=== PATIENT | female | born 1935 | race Caucasian/White ===

== ENCOUNTER 2018-11-20 13:23 | Emergency (ER) | payer SELFPAY ==
[2018-11-20 13:50] VITALS: BP 127/97; PULSE 84; TEMP 97.8; BMI 25.6
--- NOTE | 2018-11-20 14:12 | PDOC ---
Attending Attestation - HPI HPI: Unable to obtain HPI and examine patient as she wants to leave AMA. 11/20/18 14:58 - Medical Decision Making Documentation prepared by DYLON Mays, acting as medical charge entry specialist for Jeanna Davidson MD/DO. 11/20/18 14:58 <Veronika Guadalupe - Last Filed: 11/20/18 14:58> - Resident Resident Name: Jessica Corbin - ED Attending Attestation I have performed the following: I have examined & evaluated the patient, The case was reviewed & discussed with the resident, I agree w/resident's findings & plan, Exceptions are as noted - HPI HPI: - Physicial Exam PE: 11/20/18 14:11 Unable to examine this patient - Medical Decision Making 11/20/18 14:11 Pt unwilling to stay in the hospital for labs, ekg, further evaluation Pt understands the risks of leaving AMA Note: The patient insists on leaving the emergency dept and is signing out against medical advice. The patient understands the risks and complications that may result from the refusal of medical care and admission which includes and permanent disability. The patient has the mental capacity of understanding the risks of refusing care and is capable of making an informed decision. The patient was instructed to return to the emergency department should she change her mind regarding medical care or should her condition worsen. The patient signed the Against Medical Advice form. <Jeanna Davidson - Last Filed: 11/22/18 10:18>
== END 2018-11-20 14:20 | disposition left against medical advice (07) ==
LOC: JER 13:23
DX: R42 Dizziness and giddiness (principal); M54.2 Cervicalgia
CPT/HCPCS: 99281-25

== ENCOUNTER 2020-10-04 16:59 | Inpatient (IN) | payer OTHER ==
[2020-10-04 19:23] LABS: BASO % 0.2 % (0-2.0); EOS % 0.5 % (0-4.5); HEMATOCRIT 39.2 % (32.4-45.2); HEMOGLOBIN 13.6 GM/dL (10.7-15.3); LYMPH % 10.6 % (8-40); MCH 32.7 pg (25.7-33.7); MCHC 34.7 g/dl (32.0-36.0); MEAN CELL VOLUME 94.3 fl (80-96); MEAN PLT VOLUME 6.8 fl (7.5-11.1); MONO % 12.9 % (3.8-10.2); NEUT % 75.8 % (42.8-82.8); PLATELET COUNT 262 K/MM3 (134-434); RBC 4.16 M/mm3 (3.60-5.2); RDW 12.7 % (11.6-15.6); WHITE BLOOD COUNT 6.6 K/mm3 (4.0-10.0)
[2020-10-04 19:38] LABS: CHLORIDE 99 mmol/L (98-107); SODIUM 135 mmol/L (136-145)
[2020-10-04 19:41] LABS: ALBUMIN 3.2 g/dl (3.4-5.0); ANION GAP 6 MMOL/L (8-16); BLOOD UREA NITROGEN 15.4 mg/dL (7-18); CO2 31 mmol/L (21-32); GLUCOSE,RANDOM 104 mg/dL (74-106)
[2020-10-04 19:44] LABS: CREATININE 0.8 mg/dL (0.55-1.3); SGOT/AST 34 U/L (15-37); SGPT/ALT 51 U/L (13-61)
[2020-10-04 19:46] LABS: BILIRUBIN,TOTAL 1.2 mg/dL (0.2-1); TOT PROT 7.2 g/dl (6.4-8.2)
[2020-10-04 19:47] LABS: ALK PHOS 58 U/L (45-117)
[2020-10-04 20:40] LABS: LDH 287 U/L (84-246)
[2020-10-04 20:40] LABS: INR 1.07 (0.83-1.09); PROTHROMBIN TIME (PATIENT) 13.1 SEC (9.7-13.0)
[2020-10-04 20:43] LABS: ACTIVATED PTT 30.4 SECONDS (25.2-36.5)
[2020-10-04] MEDS ORDERED: AZITHROMYCIN IVPB 500 MG/250 ML BAG IVPB ONE (23:12)
[2020-10-04] MEDS ORDERED: DEXAMETHASONE SOD PHOSPHATE 10 MG/1 ML VIAL IVPUSH SCH (23:30)
[2020-10-04] MEDS ORDERED: DEXAMETHASONE SOD PHOSPHATE 4 MG/1 ML VIAL ONE (23:33)
[2020-10-04] MEDS ORDERED: CEFTRIAXONE 1 GM/50 ML BAG ONE (23:34)
[2020-10-05] MEDS: CEFTRIAXONE 1 GM in DEXTROSE 5%-WATER - 50 ML IVPB SCH ×2 (00:43→09:32)
[2020-10-05] MEDS ORDERED: AZITHROMYCIN IVPB 500 MG/250 ML BAG IVPB ONE (02:34)
[2020-10-05 04:55] LABS: EPI CELLS 18 /uL (0-25.1); HYALINE CASTS 0 /uL (0-3.1); URINE APPEARANCE CLEAR; URINE BILIRUBIN NEGATIVE (NEGATIVE); URINE COLOR YELLOW; URINE GLUCOSE (UA) NEGATIVE (NEGATIVE); URINE KETONE NEGATIVE (NEGATIVE); URINE LEUK ESTERASE TRACE (NEGATIVE); URINE NITRITE POSITIVE (NEGATIVE); URINE PROTEIN NEGATIVE (NEGATIVE); URINE RBC 4 /uL (0-23.9); URINE WBC 27 /uL (0-25.8)
[2020-10-05 05:03] LABS: URINE BACTERIA 463 /uL (0-1359)
[2020-10-05 06:24] LABS: BASO % 0.1 % (0-2.0); EOS % 0.1 % (0-4.5); HEMATOCRIT 37.5 % (32.4-45.2); HEMOGLOBIN 12.7 GM/dL (10.7-15.3); LYMPH % 6.7 % (8-40); MCH 32.2 pg (25.7-33.7); MCHC 33.9 g/dl (32.0-36.0); MEAN PLT VOLUME 6.9 fl (7.5-11.1); NEUT % 88.1 % (42.8-82.8); PLATELET COUNT 255 K/MM3 (134-434); RBC 3.95 M/mm3 (3.60-5.2); RDW 12.5 % (11.6-15.6); WHITE BLOOD COUNT 4.4 K/mm3 (4.0-10.0)
[2020-10-05 06:47] LABS: POTASSIUM 4.3 mmol/L (3.5-5.1)
[2020-10-05 06:49] LABS: ALBUMIN 2.8 g/dl (3.4-5.0); BLOOD UREA NITROGEN 12.4 mg/dL (7-18); CALCIUM 8.5 mg/dL (8.5-10.1)
[2020-10-05 06:53] LABS: CREATININE 0.8 mg/dL (0.55-1.3)
[2020-10-05 06:54] LABS: BILIRUBIN,TOTAL 0.6 mg/dL (0.2-1); TOT PROT 6.8 g/dl (6.4-8.2)
[2020-10-05] MEDS ORDERED: DONEPEZIL HCL 5 MG TABLET (FP) ONE (09:22)
[2020-10-05] MEDS ORDERED: APIXABAN 2.5 MG TABLET ONE (09:22)
[2020-10-05] MEDS ORDERED: CEFTRIAXONE 1 GM/50 ML BAG ONE (09:22)
[2020-10-05] MEDS: APIXABAN 2.5 MG TABLET PO SCH ×2 (09:32→22:15)
[2020-10-05] MEDS: PANTOPRAZOLE SODIUM 40 MG VIAL IVPUSH SCH (09:32)
[2020-10-05] MEDS: DONEPEZIL HCL 5 MG TABLET (FP) PO SCH (09:32)
[2020-10-05] MEDS: DEXAMETHASONE SOD PHOSPHATE 4 MG/1 ML VIAL IVPUSH SCH (13:55)
[2020-10-05] MEDS ORDERED: REMDESIVIR 200 MG in SODIUM CHLORIDE 210 ML IVPB ONE (14:00)
[2020-10-06 08:29] LABS: BASO % 0.2 % (0-2.0); HEMATOCRIT 35.7 % (32.4-45.2); LYMPH % 6.2 % (8-40); MCH 31.5 pg (25.7-33.7); MCHC 33.6 g/dl (32.0-36.0); MEAN CELL VOLUME 93.8 fl (80-96); MEAN PLT VOLUME 6.9 fl (7.5-11.1); MONO % 11.1 % (3.8-10.2); NEUT % 82.5 % (42.8-82.8); PLATELET COUNT 298 K/MM3 (134-434); RBC 3.81 M/mm3 (3.60-5.2); RDW 12.4 % (11.6-15.6); WHITE BLOOD COUNT 6.3 K/mm3 (4.0-10.0)
[2020-10-06 08:41] LABS: POTASSIUM 4.5 mmol/L (3.5-5.1)
[2020-10-06 08:44] LABS: CALCIUM 8.8 mg/dL (8.5-10.1)
[2020-10-06] MEDS ORDERED: cefTRIAXone SODIUM 1 GM VIAL ONE ×2 (08:44→10:20)
[2020-10-06] MEDS ORDERED: DEXTROSE 5%-WATER - 50 ML IVPB ONE ×2 (08:44→10:21)
[2020-10-06 08:46] LABS: BLOOD UREA NITROGEN 16.6 mg/dL (7-18)
[2020-10-06 08:48] LABS: CREATININE 0.7 mg/dL (0.55-1.3)
[2020-10-06] MEDS: PANTOPRAZOLE SODIUM 40 MG VIAL IVPUSH SCH (10:01)
[2020-10-06] MEDS: DEXAMETHASONE SOD PHOSPHATE 4 MG/1 ML VIAL IVPUSH SCH (10:09)
[2020-10-06] MEDS: DONEPEZIL HCL 5 MG TABLET (FP) PO SCH (10:24)
[2020-10-06] MEDS: CEFTRIAXONE 1 GM in DEXTROSE 5%-WATER - 50 ML IVPB SCH (10:24)
[2020-10-06] MEDS: APIXABAN 2.5 MG TABLET PO SCH ×2 (10:24→21:29)
[2020-10-06] MEDS: REMDESIVIR 100 MG in SODIUM CHLORIDE 230 ML IVPB SCH (14:49)
[2020-10-07 07:52] LABS: POTASSIUM 4.4 mmol/L (3.5-5.1)
[2020-10-07 07:58] LABS: CALCIUM 8.7 mg/dL (8.5-10.1)
[2020-10-07 07:59] LABS: ALBUMIN 2.8 g/dl (3.4-5.0); BASO % 0.1 % (0-2.0); BLOOD UREA NITROGEN 17.9 mg/dL (7-18); HEMATOCRIT 37.3 % (32.4-45.2); HEMOGLOBIN 12.7 GM/dL (10.7-15.3); LYMPH % 7.8 % (8-40); MCH 32.3 pg (25.7-33.7); MCHC 34.1 g/dl (32.0-36.0); MEAN CELL VOLUME 94.7 fl (80-96); MEAN PLT VOLUME 7.1 fl (7.5-11.1); NEUT % 82.1 % (42.8-82.8); PLATELET COUNT 308 K/MM3 (134-434); RBC 3.94 M/mm3 (3.60-5.2); RDW 12.9 % (11.6-15.6); WHITE BLOOD COUNT 7.1 K/mm3 (4.0-10.0)
[2020-10-07 08:00] LABS: CREATININE 0.7 mg/dL (0.55-1.3)
[2020-10-07 08:02] LABS: BILIRUBIN,TOTAL 0.4 mg/dL (0.2-1); TOT PROT 6.3 g/dl (6.4-8.2)
[2020-10-07] MEDS ORDERED: cefTRIAXone SODIUM 1 GM VIAL ONE (09:40)
[2020-10-07] MEDS ORDERED: DEXTROSE 5%-WATER - 50 ML IVPB ONE (09:40)
[2020-10-07] MEDS: CEFTRIAXONE 1 GM in DEXTROSE 5%-WATER - 50 ML IVPB SCH (09:43)
[2020-10-07] MEDS: PANTOPRAZOLE SODIUM 40 MG VIAL IVPUSH SCH (09:43)
[2020-10-07] MEDS: DONEPEZIL HCL 5 MG TABLET (FP) PO SCH (09:44)
[2020-10-07] MEDS: DEXAMETHASONE SOD PHOSPHATE 4 MG/1 ML VIAL IVPUSH SCH (09:44)
[2020-10-07] MEDS: APIXABAN 2.5 MG TABLET PO SCH ×2 (09:44→21:05)
[2020-10-07] MEDS: REMDESIVIR 100 MG in SODIUM CHLORIDE 230 ML IVPB SCH (15:01)
[2020-10-07] MEDS ORDERED: PT OWN MED DRAWER 7, Y5N ONE (17:06)
[2020-10-08 08:09] LABS: EOS % 0.1 % (0-4.5); HEMATOCRIT 37.7 % (32.4-45.2); HEMOGLOBIN 12.8 GM/dL (10.7-15.3); LYMPH % 14.1 % (8-40); MCH 32.2 pg (25.7-33.7); MCHC 33.9 g/dl (32.0-36.0); MONO % 15.3 % (3.8-10.2); NEUT % 70.5 % (42.8-82.8); PLATELET COUNT 310 K/MM3 (134-434); RBC 3.97 M/mm3 (3.60-5.2); RDW 12.9 % (11.6-15.6); WHITE BLOOD COUNT 5.1 K/mm3 (4.0-10.0)
[2020-10-08] MEDS ORDERED: cefTRIAXone SODIUM 1 GM VIAL ONE (09:03)
[2020-10-08] MEDS ORDERED: DEXTROSE 5%-WATER - 50 ML IVPB ONE (09:04)
[2020-10-08] MEDS: CEFTRIAXONE 1 GM in DEXTROSE 5%-WATER - 50 ML IVPB SCH (09:08)
[2020-10-08] MEDS: DEXAMETHASONE SOD PHOSPHATE 4 MG/1 ML VIAL IVPUSH SCH (09:08)
[2020-10-08] MEDS: DONEPEZIL HCL 5 MG TABLET (FP) PO SCH (09:09)
[2020-10-08] MEDS: PANTOPRAZOLE SODIUM 40 MG VIAL IVPUSH SCH (09:09)
[2020-10-08] MEDS: APIXABAN 2.5 MG TABLET PO SCH ×2 (09:09→21:04)
[2020-10-08 09:26] LABS: POTASSIUM 4.4 mmol/L (3.5-5.1)
[2020-10-08 09:34] LABS: CALCIUM 8.4 mg/dL (8.5-10.1)
[2020-10-08 09:35] LABS: BLOOD UREA NITROGEN 17.8 mg/dL (7-18)
[2020-10-08 09:39] LABS: CREATININE 0.6 mg/dL (0.55-1.3)
[2020-10-08] MEDS: REMDESIVIR 100 MG in SODIUM CHLORIDE 230 ML IVPB SCH (14:29)
[2020-10-09] MEDS ORDERED: cefTRIAXone SODIUM 1 GM VIAL ONE (09:27)
[2020-10-09] MEDS ORDERED: DEXTROSE 5%-WATER - 50 ML IVPB ONE (09:27)
[2020-10-09] MEDS: CEFTRIAXONE 1 GM in DEXTROSE 5%-WATER - 50 ML IVPB SCH (09:55)
[2020-10-09] MEDS: DONEPEZIL HCL 5 MG TABLET (FP) PO SCH (09:56)
[2020-10-09] MEDS: APIXABAN 2.5 MG TABLET PO SCH ×2 (09:56→21:17)
[2020-10-09] MEDS: PANTOPRAZOLE SODIUM 40 MG VIAL IVPUSH SCH (09:56)
[2020-10-09] MEDS: DEXAMETHASONE SOD PHOSPHATE 4 MG/1 ML VIAL IVPUSH SCH (09:56)
[2020-10-09] MEDS: REMDESIVIR 100 MG in SODIUM CHLORIDE 230 ML IVPB SCH (14:15)
[2020-10-10 08:57] LABS: BASO % 0.1 % (0-2.0); EOS % 0.1 % (0-4.5); HEMATOCRIT 42.6 % (32.4-45.2); HEMOGLOBIN 14.4 GM/dL (10.7-15.3); LYMPH % 15.1 % (8-40); MCHC 33.8 g/dl (32.0-36.0); MEAN CELL VOLUME 94.7 fl (80-96); MEAN PLT VOLUME 6.9 fl (7.5-11.1); MONO % 11.3 % (3.8-10.2); NEUT % 73.4 % (42.8-82.8); PLATELET COUNT 354 K/MM3 (134-434); WHITE BLOOD COUNT 6.7 K/mm3 (4.0-10.0)
[2020-10-10] MEDS ORDERED: cefTRIAXone SODIUM 1 GM VIAL ONE (09:15)
[2020-10-10] MEDS ORDERED: DEXTROSE 5%-WATER - 50 ML IVPB ONE (09:16)
[2020-10-10 09:31] LABS: POTASSIUM 4.3 mmol/L (3.5-5.1)
[2020-10-10 09:32] LABS: BLOOD UREA NITROGEN 22.8 mg/dL (7-18); CALCIUM 8.9 mg/dL (8.5-10.1)
[2020-10-10 09:36] LABS: CREATININE 0.8 mg/dL (0.55-1.3)
[2020-10-10] MEDS: DONEPEZIL HCL 5 MG TABLET (FP) PO SCH (09:45)
[2020-10-10] MEDS: DEXAMETHASONE SOD PHOSPHATE 4 MG/1 ML VIAL IVPUSH SCH (09:45)
[2020-10-10] MEDS: APIXABAN 2.5 MG TABLET PO SCH ×2 (09:47→21:41)
[2020-10-10] MEDS: PANTOPRAZOLE SODIUM 40 MG VIAL IVPUSH SCH (09:48)
[2020-10-10] MEDS: CEFTRIAXONE 1 GM in DEXTROSE 5%-WATER - 50 ML IVPB SCH (09:49)
[2020-10-11] MEDS ORDERED: DEXTROSE 5%-WATER - 50 ML IVPB ONE (09:13)
[2020-10-11] MEDS ORDERED: cefTRIAXone SODIUM 1 GM VIAL ONE (09:13)
[2020-10-11] MEDS: DONEPEZIL HCL 5 MG TABLET (FP) PO SCH (09:43)
[2020-10-11] MEDS: APIXABAN 2.5 MG TABLET PO SCH ×2 (09:43→21:56)
[2020-10-11] MEDS: DEXAMETHASONE SOD PHOSPHATE 4 MG/1 ML VIAL IVPUSH SCH (09:44)
[2020-10-11] MEDS: CEFTRIAXONE 1 GM in DEXTROSE 5%-WATER - 50 ML IVPB SCH (09:44)
[2020-10-11] MEDS: PANTOPRAZOLE SODIUM 40 MG VIAL IVPUSH SCH (09:44)
[2020-10-11 18:19] VITALS: BMI 26.3
[2020-10-12] MEDS: DONEPEZIL HCL 5 MG TABLET (FP) PO SCH (10:03)
[2020-10-12] MEDS: APIXABAN 2.5 MG TABLET PO SCH (10:03)
[2020-10-12] MEDS: DEXAMETHASONE SOD PHOSPHATE 4 MG/1 ML VIAL IVPUSH SCH (10:03)
[2020-10-12] MEDS: PANTOPRAZOLE SODIUM 40 MG VIAL IVPUSH SCH (10:03)
[2020-10-12 10:25] VITALS: PULSE 89
[2020-10-12 13:21] VITALS: BP 93/53; TEMP 98.9
== END 2020-10-12 13:13 | disposition home or self-care (01) | DRG 177 ==
LOC: JER 16:59 → JERBED 21:11 → J5S 10-05 12:01
PROVIDERS: ADMIT Family Medicine; ATTEND Family Medicine
PROC: 8E0ZXY6 Isolation (ICD-10-PCS; 2020-10-04)
PROC: XW033E5 Introduction of Remdesivir Anti-infective into Peripheral Vein, Percutaneous Approach, New Technology Group 5 (ICD-10-PCS; principal; 2020-10-06)
PROC: XW13325 Transfusion of Convalescent Plasma (Nonautologous) into Peripheral Vein, Percutaneous Approach, New Technology Group 5 (ICD-10-PCS; 2020-10-06)
DX: U07.1 COVID-19 (principal); J12.89 Other viral pneumonia; N39.0 Urinary tract infection, site not specified; G30.9 Alzheimer's disease, unspecified; F02.80 Dementia in other diseases classified elsewhere, unspecified severity, without behavioral disturbance, psychotic disturbance, mood disturbance, and anxiety; E66.9 Obesity, unspecified; Z68.25 Body mass index [BMI] 25.0-25.9, adult; R09.02 Hypoxemia
CPT/HCPCS: 36415; 36430; 71045-TC-FY; 71250-TC; 71275-TC; 80048; 80053; 81003; 82550; 82728; 83036; 83615; 83880; 84484; 85025; 85379; 85610; 85730; 86140; 86850; 86900; 86901; 87086; 93005; 93010; 94761; 99285-25; C9803; J1100; P9017; Q9967; U0003

== ENCOUNTER 2022-11-30 13:40 | Observation (INO) | payer OTHER ==
[2022-11-30 14:00] VITALS: BMI 27.1
[2022-11-30 15:32] LABS: BASO % 0.3 % (0-2.0); EOS % 0.3 % (0-4.5); HEMATOCRIT 43.3 % (32.4-45.2); HEMOGLOBIN 14.2 GM/dL (10.7-15.3); LYMPH % 11.7 % (8-40); MCH 31.8 pg (25.7-33.7); MCHC 32.8 g/dl (32.0-36.0); MEAN CELL VOLUME 96.8 fl (80-96); MEAN PLT VOLUME 7.2 fl (7.5-11.1); MONO % 12.8 % (3.8-10.2); NEUT % 74.9 % (42.8-82.8); PLATELET COUNT 217 10^3/uL (134-434); RBC 4.47 M/mm3 (3.60-5.2); RDW 13.9 % (11.6-15.6); WHITE BLOOD COUNT 6.5 K/mm3 (4.0-10.0)
[2022-11-30 15:39] LABS: INR 1.04 (0.83-1.09)
[2022-11-30 15:42] LABS: ACTIVATED PTT 28.1 SECONDS (25.2-36.5)
[2022-11-30 16:14] LABS: CALCIUM 9.7 mg/dL (8.5-10.1)
[2022-11-30 16:15] LABS: ALBUMIN 3.6 g/dl (3.4-5.0)
[2022-11-30 16:18] LABS: CREATININE 0.8 mg/dL (0.55-1.3)
[2022-11-30 16:19] LABS: BILIRUBIN,TOTAL 0.6 mg/dL (0.2-1); TOT PROT 7.2 g/dl (6.4-8.2)
[2022-11-30 16:50] LABS: EPI CELLS 19 /uL (0-25.1); HYALINE CASTS 0 /uL (0-3.1); PH,URINE 6.5 (5.0-8.0); URINE APPEARANCE CLOUDY; URINE BACTERIA 782 /uL (0-1359); URINE BILIRUBIN NEGATIVE (NEGATIVE); URINE COLOR YELLOW; URINE GLUCOSE (UA) NEGATIVE (NEGATIVE); URINE KETONE NEGATIVE (NEGATIVE); URINE LEUK ESTERASE 1+ (NEGATIVE); URINE NITRITE NEGATIVE (NEGATIVE); URINE PROTEIN NEGATIVE (NEGATIVE); URINE RBC 17 /uL (0-23.9); URINE WBC 29 /uL (0-25.8)
[2022-11-30] MEDS ORDERED: CEFTRIAXONE 1,000 MG in DEXTROSE 5%-WATER - 50 ML IVPB ONE (18:20)
[2022-11-30] MEDS ORDERED: CEFTRIAXONE 1 GM/50 ML BAG ONE (18:36)
[2022-12-01] MEDS ORDERED: LEVOTHYROXINE NA 25 MCG TABLET (FP) PO SCH (07:00)
[2022-12-01] MEDS ORDERED: LEVOTHYROXINE NA 25 MCG TABLET (FP) ONE (07:29)
[2022-12-01 08:00] VITALS: RESP 18
[2022-12-01] MEDS ORDERED: levETIRAcetam 500 MG TABLET (FP) PO ONE (09:31)
[2022-12-01] MEDS ORDERED: NITROFURANTOIN MACROCRYSTAL 50 MG CAPSULE (FP) PO SCH (10:00)
[2022-12-01] MEDS ORDERED: ENOXAPARIN NA (PORCINE) 80 MG/0.8 ML DISP.SYRIN SQ SCH (10:00)
[2022-12-01] MEDS ORDERED: levETIRAcetam 500 MG TABLET (FP) PO SCH (10:00)
[2022-12-01 11:08] VITALS: BP 111/57; PULSE 90; TEMP 97.8
== END 2022-12-01 15:01 | disposition home or self-care (01) ==
LOC: JER 13:40 → INTOOBSV 22:19 → JERBED 22:19 → UNDOADMOB 22:19 → JERBED 12-01 09:56 → J7W 12-01 09:56 → JERBED 12-01 11:01 → J7W 12-01 11:01
PROVIDERS: ADMIT Family Medicine; ATTEND Family Medicine
DX: N39.0 Urinary tract infection, site not specified (principal); G30.0 Alzheimer's disease with early onset; F02.80 Dementia in other diseases classified elsewhere, unspecified severity, without behavioral disturbance, psychotic disturbance, mood disturbance, and anxiety; E03.9 Hypothyroidism, unspecified; R41.0 Disorientation, unspecified; R55 Syncope and collapse; R58 Hemorrhage, not elsewhere classified
CPT/HCPCS: 0241U-QW; 36415; 70450-TC; 71045-TC-FY; 71275-TC; 80053; 80177; 81003; 84439; 84443; 84484; 85025; 85610; 85730; 87086; 93005; 93010; 93971-TC; 96365; 99285-25; G0378; Q9967

== ENCOUNTER 2023-02-08 19:24 | Observation (INO) | payer OTHER ==
[2023-02-08 21:29] LABS: BASO % 0.6 % (0-2.0); EOS % 0.5 % (0-4.5); HEMOGLOBIN 13.2 GM/dL (10.7-15.3); LYMPH % 18.6 % (8-40); MCH 32.8 pg (25.7-33.7); MCHC 34.8 g/dl (32.0-36.0); MEAN CELL VOLUME 94.2 fl (80-96); MEAN PLT VOLUME 7.3 fl (7.5-11.1); MONO % 12.8 % (3.8-10.2); NEUT % 67.5 % (42.8-82.8); PLATELET COUNT 212 10^3/uL (134-434); RBC 4.03 M/mm3 (3.60-5.2); RDW 14.2 % (11.6-15.6); WHITE BLOOD COUNT 4.8 K/mm3 (4.0-10.0)
[2023-02-08 21:36] LABS: INR 0.99 (0.83-1.09); PROTHROMBIN TIME (PATIENT) 11.5 SEC (9.7-13.0)
[2023-02-08 21:39] LABS: ACTIVATED PTT 27.9 SECONDS (25.2-36.5)
[2023-02-08 21:48] LABS: ALBUMIN 3.6 g/dl (3.4-5.0); BLOOD UREA NITROGEN 24.6 mg/dL (7-18)
[2023-02-08 21:51] LABS: CREATININE 0.6 mg/dL (0.55-1.3)
[2023-02-08 21:52] LABS: BILIRUBIN,TOTAL 0.5 mg/dL (0.2-1); TOT PROT 6.9 g/dl (6.4-8.2)
[2023-02-08 23:43] LABS: CALCIUM 9.1 mg/dL (8.5-10.1)
[2023-02-08 23:47] LABS: CREATININE 0.7 mg/dL (0.55-1.3)
[2023-02-08 23:49] LABS: EPI CELLS 23 /uL (0-25.1); HYALINE CASTS 0 /uL (0-3.1); PH,URINE 6.5 (5.0-8.0); URINE APPEARANCE CLEAR; URINE BACTERIA >9,000 /uL (0-1359); URINE BILIRUBIN NEGATIVE (NEGATIVE); URINE COLOR YELLOW; URINE GLUCOSE (UA) NEGATIVE (NEGATIVE); URINE KETONE NEGATIVE (NEGATIVE); URINE LEUK ESTERASE 1+ (NEGATIVE); URINE NITRITE POSITIVE (NEGATIVE); URINE PROTEIN NEGATIVE (NEGATIVE); URINE RBC 23 /uL (0-23.9); URINE UROBILINOGEN 0.2 mg/dL (0.2-1.0); URINE WBC 139 /uL (0-25.8)
[2023-02-09] MEDS ORDERED: CEFTRIAXONE 1,000 MG in DEXTROSE 5%-WATER - 50 ML IVPB ONE (00:20)
[2023-02-09] MEDS ORDERED: CEFTRIAXONE 1 GM/50 ML BAG ONE (01:27)
[2023-02-09 04:35] VITALS: BMI 28.5
[2023-02-09] MEDS: LEVOTHYROXINE NA 25 MCG TABLET (FP) PO SCH (06:06)
[2023-02-09 07:45] LABS: BASO % 0.3 % (0-2.0); EOS % 0.7 % (0-4.5); HEMOGLOBIN 12.6 GM/dL (10.7-15.3); LYMPH % 18.2 % (8-40); MCHC 35.1 g/dl (32.0-36.0); MEAN CELL VOLUME 94.1 fl (80-96); MEAN PLT VOLUME 7.5 fl (7.5-11.1); MONO % 12.8 % (3.8-10.2); PLATELET COUNT 184 10^3/uL (134-434); RBC 3.83 M/mm3 (3.60-5.2); RDW 14.1 % (11.6-15.6); WHITE BLOOD COUNT 4.6 K/mm3 (4.0-10.0)
[2023-02-09 07:48] LABS: CALCIUM 8.8 mg/dL (8.5-10.1)
[2023-02-09 07:49] LABS: MAGNESIUM 2.1 mg/dL (1.8-2.4)
[2023-02-09 07:52] LABS: CREATININE 0.5 mg/dL (0.55-1.3)
[2023-02-09] MEDS ORDERED: LACTATED RINGERS SOLUTION 1,000 ML/1,000 ML INFUS.BAG IV SCH (11:15)
[2023-02-09] MEDS ORDERED: DONEPEZIL HCL 10 MG TABLET (FP) PO SCH (22:00)
[2023-02-10] MEDS: LEVOTHYROXINE NA 25 MCG TABLET (FP) PO SCH (06:16)
[2023-02-10 09:56] LABS: CALCIUM 9.1 mg/dL (8.5-10.1)
[2023-02-10 09:57] LABS: ALBUMIN 3.1 g/dl (3.4-5.0); BLOOD UREA NITROGEN 13.5 mg/dL (7-18); MAGNESIUM 2.1 mg/dL (1.8-2.4)
[2023-02-10 10:00] LABS: CREATININE 0.7 mg/dL (0.55-1.3); PHOSPHOROUS 2.6 mg/dL (2.5-4.9)
[2023-02-10] MEDS ORDERED: CEFTRIAXONE 1 GM in DEXTROSE 5%-WATER - 50 ML IVPB SCH (10:00)
[2023-02-10 10:01] LABS: BILIRUBIN,TOTAL 0.8 mg/dL (0.2-1); TOT PROT 6.1 g/dl (6.4-8.2)
[2023-02-10 11:27] VITALS: BP 113/62; PULSE 79; RESP 18; TEMP 97.9
== END 2023-02-10 13:01 | disposition home or self-care (01) ==
LOC: JER 19:24 → JERBED 02-09 01:18 → J4S 02-09 03:33
PROVIDERS: ADMIT Internal Medicine; ATTEND Internal Medicine
PROC: 3E03329 Introduction of Other Anti-infective into Peripheral Vein, Percutaneous Approach (ICD-10-PCS; principal; 2023-02-09)
PROC: 3E0337Z Introduction of Electrolytic and Water Balance Substance into Peripheral Vein, Percutaneous Approach (ICD-10-PCS; 2023-02-09)
DX: N39.0 Urinary tract infection, site not specified (principal); G30.1 Alzheimer's disease with late onset; F02.80 Dementia in other diseases classified elsewhere, unspecified severity, without behavioral disturbance, psychotic disturbance, mood disturbance, and anxiety; E03.9 Hypothyroidism, unspecified; I60.8 Other nontraumatic subarachnoid hemorrhage; R79.89 Other specified abnormal findings of blood chemistry; Z87.820 Personal history of traumatic brain injury; W18.39XA Other fall on same level, initial encounter; Y93.89 Activity, other specified; Y92.89 Other specified places as the place of occurrence of the external cause
CPT/HCPCS: 0241U-QW; 36415; 70450-TC; 70553-TC; 71045-TC-FY; 72125-TC; 72128-TC; 72131-TC; 72170-TC-FY; 73562-TC-LT-FY; 73562-TC-RT-FY; 80048; 80053; 81003; 83735; 84100; 84484; 85025; 85610; 85730; 87086; 87186; 93005; 93010; 93306-TC; 96361; 96365; 96366; 97116-GP; 97161-GP; 99285-25; A9579; G0378